=== PATIENT | female | born 1960 | race Caucasian/White ===

== ENCOUNTER 2019-04-08 14:29 | Inpatient (IN) ==
[2019-04-08] MEDS ORDERED: ONDANSETRON 4 MG/2 ML VIAL IV PRN (16:46)
[2019-04-08] MEDS ORDERED: POTASSIUM CHLORIDE RIDER 10 MEQ in PREMIX 1 EACH IV PRN (16:46)
[2019-04-08] MEDS ORDERED: ACETAMINOPHEN 325 MG TABLET PO PRN (16:46)
[2019-04-08] MEDS ORDERED: MAGNESIUM SULF RIDER 2 GM in PREMIX 1 EACH IV PRN (16:46)
[2019-04-08] MEDS ORDERED: MAGNESIUM SULF RIDER 4 GM in PREMIX 1 EACH IV PRN (16:46)
[2019-04-08] MEDS ORDERED: GLUCAGON 1 MG VIAL IM PRN (17:03)
[2019-04-08] MEDS ORDERED: DEXTROSE 10% 25 GM/250 ML BAG IV PRN (17:03)
[2019-04-08] MEDS: PANTOPRAZOLE 40 MG TABLET PO SCH (17:57)
[2019-04-08] MEDS: METOCLOPRAMIDE 10 MG/2 ML VIAL IV SCH ×2 (17:57→23:52)
[2019-04-08] MEDS: INSULIN GLARGINE 100 UNIT/ML SUBCUT SCH (17:57)
[2019-04-08] MEDS: NICOTINE 21 MG/24 HR PATCH TRANSDERM SCH (17:58)
[2019-04-08 18:11] LABS: Basophils # 0.1 10*3/uL (0.0-0.2); Basophils % 0.6 % (0.0-0.8); Eosinophils % 0.1 % (0.00-10.9); Hematocrit 39.9 VOL% (35.7-47.0); Hemoglobin 13.9 GM/DL (12.0-16.0); Immature Granulocytes % 3.3 %; Lymphocytes # 0.9 10*3/uL (1.4-4.0); Lymphocytes % 6.1 % (21.3-54.2); Mean Corpuscular HGB Conc 34.8 GM/DL (32-36); Mean Corpuscular Volume 88.9 FL (87-102); Mean Platelet Volume 9.4 FL (9.6-12.0); Monocytes % 7.1 % (1.7-12.7); Neutrophils % 82.8 % (38.7-73.9); Platelet Count 295 T/CUMM (130-400); Red Blood Count 4.49 MC/CUMM (3.8-5.5); Red Cell Distribution Width 12.7 % (9.3-17.3); White Blood Count 15.4 T/CUMM (4-12)
[2019-04-08 18:23] LABS: Albumin 2.1 G/DL (3.4-5.0); Bilirubin,Total 0.4 MG/DL (0.2-1.0); Calcium 7.5 MG/DL (8.5-10.1); Osmolality,Calculated 279.7 MOS/KG (273-304); Total Protein 5.6 G/DL (6.4-8.3)
[2019-04-08 18:28] LABS: Apearance,Urine CLEAR (Clear); Bacteria,Urine Occasional /HPF (Few); Bilirubin,Urine Negative (Negative); Blood, Urine Small mg/dL (Negative); Glucose,Urine (UA) >=500 mg/dL (Negative); Ketones,Urine 80 mg/dL (Negative); Mucus,Urine Occasional /LPF (Occasional); Nitrite,Urine Negative (Negative); Protein,Urine Negative; RBC,Urine 1 /HPF (0-4); Squamous Epithelial Cell,Urine Occasional /HPF (0-10); Urine Color Straw (Yellow); Urine Specific Gravity 1.014 (1.001-1.035); Urine Urobilinogen < 2.0 EU/DL (0.2-1.0); WBC,Urine 1 /HPF (0-6)
[2019-04-08 19:26] LABS: Band Neutrophils 3 % (0-10); Hypochromasia 1+; Lymphocytes 4 % (20-55); Microcytosis Slight; Myelocytes 1 %; Segmented Neutrophils 81 % (50-85); Total Cells Counted 100
[2019-04-08 19:28] LABS: Platelet Estimate Normal
[2019-04-08] MEDS: PROMETHAZINE 25 MG/1 ML VIAL IM PRN (19:30)
[2019-04-08] MEDS: MORPHINE 4 MG/1 ML VIAL IV PRN ×2 (19:30→23:51)
[2019-04-08] MEDS: POTASSIUM CHLORIDE INJ 40 MEQ in SODIUM CHLORIDE 0.45% 1,000 ML IV SCH (19:30)
[2019-04-08] MEDS: metroNIDAZOLE INJ 500 MG in PREMIX 1 EACH IV SCH (19:30)
[2019-04-08] MEDS: POTASSIUM CHLORIDE 20 MEQ TABLET PO PRN ×2 (21:07→23:52)
[2019-04-08] MEDS: ENOXAPARIN 40 MG/0.4 ML SYRINGE SUBCUT SCH (21:08)
[2019-04-08] MEDS: CIPROFLOXACIN INJ 400 MG in PREMIX 1 EACH IV SCH (22:44)
[2019-04-08] MEDS: INSULIN LISPRO 100 UNIT/ML SUBCUT SCH (22:54)
[2019-04-09] MEDS: PROMETHAZINE 25 MG/1 ML VIAL IM PRN ×3 (01:38→15:45)
[2019-04-09] MEDS: metroNIDAZOLE INJ 500 MG in PREMIX 1 EACH IV SCH ×4 (04:01→21:07)
[2019-04-09 05:37] LABS: Basophils # 0.1 10*3/uL (0.0-0.2); Basophils % 0.6 % (0.0-0.8); Eosinophils % 0.3 % (0.00-10.9); Hematocrit 34.3 VOL% (35.7-47.0); Hemoglobin 11.9 GM/DL (12.0-16.0); Immature Granulocytes % 2.3 %; Immature Granulocytes Absolute 0.33 #; Lymphocytes # 1.5 10*3/uL (1.4-4.0); Lymphocytes % 10.2 % (21.3-54.2); Mean Corpuscular HGB Conc 34.7 GM/DL (32-36); Mean Corpuscular Volume 88.9 FL (87-102); Mean Platelet Volume 9.8 FL (9.6-12.0); Monocytes % 7.8 % (1.7-12.7); Neutrophils % 78.8 % (38.7-73.9); Platelet Count 274 T/CUMM (130-400); Red Blood Count 3.86 MC/CUMM (3.8-5.5); Red Cell Distribution Width 12.6 % (9.3-17.3); White Blood Count 14.2 T/CUMM (4-12)
[2019-04-09 06:03] LABS: Calcium 7.4 MG/DL (8.5-10.1); Osmolality,Calculated 280.5 MOS/KG (273-304)
[2019-04-09 06:09] LABS: Microcytosis Slight; Platelet Estimate Normal
[2019-04-09] MEDS: METOCLOPRAMIDE 10 MG/2 ML VIAL IV SCH ×3 (06:42→18:13)
[2019-04-09] MEDS: MORPHINE 4 MG/1 ML VIAL IV PRN ×4 (06:42→21:05)
[2019-04-09] MEDS: INSULIN LISPRO 100 UNIT/ML SUBCUT SCH ×4 (07:48→21:10)
[2019-04-09] MEDS: PANTOPRAZOLE 40 MG TABLET PO SCH (08:45)
[2019-04-09] MEDS: INSULIN GLARGINE 100 UNIT/ML SUBCUT SCH (08:45)
[2019-04-09] MEDS: NICOTINE 21 MG/24 HR PATCH TRANSDERM SCH (08:47)
[2019-04-09] MEDS: CIPROFLOXACIN INJ 400 MG in PREMIX 1 EACH IV SCH ×2 (09:58→23:19)
[2019-04-09] MEDS: POTASSIUM CHLORIDE INJ 40 MEQ in SODIUM CHLORIDE 0.45% 1,000 ML IV SCH ×3 (10:20→17:31)
[2019-04-09] MEDS: POTASSIUM CHLORIDE 20 MEQ TABLET PO PRN ×3 (14:10→18:15)
[2019-04-09] MEDS ORDERED: ALPRAZolam 0.5 MG TABLET PO PRN (17:08)
[2019-04-09] MEDS ORDERED: hydrOXYzine HCL 25 MG TABLET PO PRN (17:08)
[2019-04-09] MEDS: ONDANSETRON 4 MG/2 ML VIAL IV PRN (21:05)
[2019-04-09] MEDS: ENOXAPARIN 40 MG/0.4 ML SYRINGE SUBCUT SCH (21:06)
[2019-04-10] MEDS: MORPHINE 4 MG/1 ML VIAL IV PRN ×2 (01:26→05:47)
[2019-04-10] MEDS: METOCLOPRAMIDE 10 MG/2 ML VIAL IV SCH ×5 (01:26→23:43)
[2019-04-10] MEDS: POTASSIUM CHLORIDE INJ 40 MEQ in SODIUM CHLORIDE 0.45% 1,000 ML IV SCH ×2 (02:30→15:42)
[2019-04-10] MEDS: metroNIDAZOLE INJ 500 MG in PREMIX 1 EACH IV SCH ×4 (02:31→20:09)
[2019-04-10 05:33] LABS: Basophils # 0.1 10*3/uL (0.0-0.2); Basophils % 0.5 % (0.0-0.8); Eosinophils % 0.2 % (0.00-10.9); Hematocrit 32.5 VOL% (35.7-47.0); Hemoglobin 11.6 GM/DL (12.0-16.0); Immature Granulocytes % 1.8 %; Immature Granulocytes Absolute 0.23 #; Lymphocytes # 1.4 10*3/uL (1.4-4.0); Mean Corpuscular HGB Conc 35.7 GM/DL (32-36); Mean Corpuscular Volume 86.7 FL (87-102); Mean Platelet Volume 9.9 FL (9.6-12.0); Monocytes % 5.3 % (1.7-12.7); Neutrophils % 81.2 % (38.7-73.9); Platelet Count 291 T/CUMM (130-400); Red Blood Count 3.75 MC/CUMM (3.8-5.5); Red Cell Distribution Width 12.3 % (9.3-17.3); White Blood Count 13.1 T/CUMM (4-12)
[2019-04-10 05:52] LABS: Calcium 7.7 MG/DL (8.5-10.1); Osmolality,Calculated 282.5 MOS/KG (273-304)
[2019-04-10 05:57] LABS: Alanine Aminotransferase 14 U/L (13-56); Albumin 2.2 G/DL (3.4-5.0); Alkaline Phosphatase 129 U/L (45-117); Aspartate Amino Transferase 14 U/L (0-37); Blood Urea Nitrogen < 1 MG/DL (7-18); Calcium 7.7 MG/DL (8.5-10.1); Estimated Glom Filtration Rate 90 ML/MIN; Glucose 287 MG/DL (74-106); Osmolality,Calculated 284.8 MOS/KG (273-304); Total Protein 4.9 G/DL (6.4-8.3)
[2019-04-10] MEDS: INSULIN LISPRO 100 UNIT/ML SUBCUT SCH ×4 (07:44→21:51)
[2019-04-10] MEDS: CIPROFLOXACIN INJ 400 MG in PREMIX 1 EACH IV SCH ×2 (08:55→21:57)
[2019-04-10] MEDS: INSULIN GLARGINE 100 UNIT/ML SUBCUT SCH (08:55)
[2019-04-10] MEDS: PANTOPRAZOLE 40 MG TABLET PO SCH (08:56)
[2019-04-10] MEDS: NICOTINE 21 MG/24 HR PATCH TRANSDERM SCH (08:56)
[2019-04-10] MEDS: CALCIUM (CARBONATE)/VITAMIN D 600 MG-400 UNIT TABLET PO SCH (08:56)
[2019-04-10] MEDS: SERTRALINE 100 MG TABLET PO SCH (08:56)
[2019-04-10] MEDS: DOCUSATE SODIUM 100 MG CAPSULE PO SCH (08:57)
[2019-04-10] MEDS: oxyCODONE/ACETAMINOPHEN 5-325 MG TABLET PO PRN ×3 (09:08→21:50)
[2019-04-10] MEDS: LISINOPRIL 20 MG TABLET PO SCH (09:46)
[2019-04-10] MEDS: MORPHINE ER 30 MG TABLET PO SCH ×2 (12:05→23:42)
[2019-04-10] MEDS: ONDANSETRON 4 MG/2 ML VIAL IV PRN ×2 (15:39→22:01)
[2019-04-10] MEDS: GABAPENTIN 100 MG CAPSULE PO SCH (21:51)
[2019-04-10] MEDS: ENOXAPARIN 40 MG/0.4 ML SYRINGE SUBCUT SCH (21:53)
[2019-04-11] MEDS: POTASSIUM CHLORIDE INJ 40 MEQ in SODIUM CHLORIDE 0.45% 1,000 ML IV SCH ×4 (01:40→23:46)
[2019-04-11] MEDS: metroNIDAZOLE INJ 500 MG in PREMIX 1 EACH IV SCH ×4 (01:42→20:27)
[2019-04-11] MEDS: METOCLOPRAMIDE 10 MG/2 ML VIAL IV SCH ×4 (05:06→23:29)
[2019-04-11 05:15] LABS: Basophils # 0.1 10*3/uL (0.0-0.2); Basophils % 0.7 % (0.0-0.8); Eosinophils # 0.1 10*3/uL (0.0-0.87); Eosinophils % 1.2 % (0.00-10.9); Hematocrit 30.5 VOL% (35.7-47.0); Hemoglobin 10.8 GM/DL (12.0-16.0); Immature Granulocytes % 1.6 %; Immature Granulocytes Absolute 0.14 #; Lymphocytes # 2.5 10*3/uL (1.4-4.0); Mean Corpuscular HGB Conc 35.4 GM/DL (32-36); Mean Corpuscular Volume 87.1 FL (87-102); Mean Platelet Volume 9.8 FL (9.6-12.0); Monocytes % 5.8 % (1.7-12.7); Neutrophils % 62.7 % (38.7-73.9); Platelet Count 287 T/CUMM (130-400); Red Cell Distribution Width 12.5 % (9.3-17.3)
[2019-04-11 05:43] LABS: Calcium 7.6 MG/DL (8.5-10.1); Osmolality,Calculated 284.1 MOS/KG (273-304)
[2019-04-11] MEDS: INSULIN LISPRO 100 UNIT/ML SUBCUT SCH ×4 (08:05→21:08)
[2019-04-11] MEDS ORDERED: PROPOFOL 200 MG/20 ML VIAL IV ONE (09:00)
[2019-04-11] MEDS: DOCUSATE SODIUM 100 MG CAPSULE PO SCH (09:00)
[2019-04-11] MEDS: INSULIN GLARGINE 100 UNIT/ML SUBCUT SCH (09:00)
[2019-04-11] MEDS ORDERED: LIDOCAINE 2% 5 ML VIAL ONE (09:00)
[2019-04-11] MEDS: GABAPENTIN 100 MG CAPSULE PO SCH ×2 (09:00→20:27)
[2019-04-11] MEDS: LISINOPRIL 20 MG TABLET PO SCH (09:04)
[2019-04-11] MEDS: CIPROFLOXACIN INJ 400 MG in PREMIX 1 EACH IV SCH ×2 (09:55→20:27)
[2019-04-11] MEDS ORDERED: BISACODYL 5 MG TABLET PO ONE (12:00)
[2019-04-11] MEDS ORDERED: ONDANSETRON 4 MG TABLET PO PRN (12:23)
[2019-04-11] MEDS ORDERED: diphenhydrAMINE CAP 25 MG CAPSULE PO PRN (12:23)
[2019-04-11] MEDS: MORPHINE ER 30 MG TABLET PO SCH ×2 (13:53→23:29)
[2019-04-11] MEDS: NICOTINE 21 MG/24 HR PATCH TRANSDERM SCH (13:55)
[2019-04-11] MEDS: CALCIUM (CARBONATE)/VITAMIN D 600 MG-400 UNIT TABLET PO SCH (14:05)
[2019-04-11] MEDS: PANTOPRAZOLE 40 MG TABLET PO SCH (14:05)
[2019-04-11] MEDS: SERTRALINE 100 MG TABLET PO SCH (14:06)
[2019-04-11] MEDS: oxyCODONE/ACETAMINOPHEN 5-325 MG TABLET PO PRN (16:19)
[2019-04-11] MEDS: POTASSIUM CHLORIDE 20 MEQ TABLET PO PRN (16:20)
[2019-04-11] MEDS ORDERED: POLYETHYLENE GLYCOL POWDER 255 GM BOTTLE PO ONE (18:00)
[2019-04-11] MEDS: ENOXAPARIN 40 MG/0.4 ML SYRINGE SUBCUT SCH (20:27)
[2019-04-11] MEDS ORDERED: DICLOFENAC SODIUM 75 MG TABLET PO SCH (21:00)
[2019-04-12] MEDS: metroNIDAZOLE INJ 500 MG in PREMIX 1 EACH IV SCH ×4 (01:34→20:26)
[2019-04-12 05:22] LABS: Basophils % 0.5 % (0.0-0.8); Eosinophils # 0.1 10*3/uL (0.0-0.87); Eosinophils % 0.9 % (0.00-10.9); Hematocrit 31.6 VOL% (35.7-47.0); Hemoglobin 10.9 GM/DL (12.0-16.0); Immature Granulocytes % 1.1 %; Immature Granulocytes Absolute 0.08 #; Lymphocytes # 2.1 10*3/uL (1.4-4.0); Lymphocytes % 28.4 % (21.3-54.2); Mean Corpuscular HGB Conc 34.5 GM/DL (32-36); Mean Corpuscular Volume 89.3 FL (87-102); Mean Platelet Volume 9.7 FL (9.6-12.0); Monocytes % 5.9 % (1.7-12.7); Neutrophils % 63.2 % (38.7-73.9); Platelet Count 299 T/CUMM (130-400); Red Blood Count 3.54 MC/CUMM (3.8-5.5); Red Cell Distribution Width 12.8 % (9.3-17.3); White Blood Count 7.4 T/CUMM (4-12)
[2019-04-12] MEDS: METOCLOPRAMIDE 10 MG/2 ML VIAL IV SCH ×3 (05:38→18:46)
[2019-04-12 05:55] LABS: Calcium 7.9 MG/DL (8.5-10.1); Osmolality,Calculated 287.8 MOS/KG (273-304)
[2019-04-12] MEDS: POTASSIUM CHLORIDE INJ 40 MEQ in SODIUM CHLORIDE 0.45% 1,000 ML IV SCH ×2 (07:20→16:26)
[2019-04-12] MEDS: INSULIN LISPRO 100 UNIT/ML SUBCUT SCH ×4 (08:24→20:17)
[2019-04-12] MEDS: LISINOPRIL 20 MG TABLET PO SCH (08:24)
[2019-04-12] MEDS: LACTATED RINGERS 1,000 ML IV SCH (09:55)
[2019-04-12] MEDS: CIPROFLOXACIN INJ 400 MG in PREMIX 1 EACH IV SCH ×2 (09:55→21:58)
[2019-04-12] MEDS ORDERED: LIDOCAINE 2% 5 ML VIAL ONE (10:00)
[2019-04-12] MEDS ORDERED: PROPOFOL 200 MG/20 ML VIAL IV ONE (10:00)
[2019-04-12] MEDS ORDERED: INSULIN GLARGINE 100 UNIT/ML SUBCUT SCH (10:24)
[2019-04-12] MEDS ORDERED: FLUCONAZOLE 150 MG TABLET PO ONE (10:24)
[2019-04-12] MEDS: INSULIN GLARGINE 100 UNIT/ML SUBCUT SCH (10:34)
[2019-04-12] MEDS: DOCUSATE SODIUM 100 MG CAPSULE PO SCH (14:28)
[2019-04-12] MEDS: GABAPENTIN 100 MG CAPSULE PO SCH ×2 (14:28→20:27)
[2019-04-12] MEDS: MULTIVITAMIN (PRENATAL) TABLET PO SCH (14:28)
[2019-04-12] MEDS: NICOTINE 21 MG/24 HR PATCH TRANSDERM SCH (14:29)
[2019-04-12] MEDS: CALCIUM (CARBONATE)/VITAMIN D 600 MG-400 UNIT TABLET PO SCH (14:29)
[2019-04-12] MEDS: SERTRALINE 100 MG TABLET PO SCH (14:30)
[2019-04-12] MEDS: PANTOPRAZOLE 40 MG TABLET PO SCH (14:30)
[2019-04-12] MEDS: MORPHINE ER 30 MG TABLET PO SCH (14:30)
[2019-04-12] MEDS ORDERED: INSULIN REGULAR 100 UNIT/ML SUBCUT ONE (15:43)
[2019-04-12] MEDS: oxyCODONE/ACETAMINOPHEN 5-325 MG TABLET PO PRN ×2 (16:32→21:58)
[2019-04-12 19:21] LABS: CDT Specimen Source STOOL
[2019-04-12] MEDS: ENOXAPARIN 40 MG/0.4 ML SYRINGE SUBCUT SCH (20:27)
[2019-04-13] MEDS: MORPHINE ER 30 MG TABLET PO SCH ×2 (00:11→12:06)
[2019-04-13] MEDS: METOCLOPRAMIDE 10 MG/2 ML VIAL IV SCH ×3 (00:11→12:05)
[2019-04-13] MEDS: POTASSIUM CHLORIDE INJ 40 MEQ in SODIUM CHLORIDE 0.45% 1,000 ML IV SCH ×3 (02:50→12:45)
[2019-04-13] MEDS: metroNIDAZOLE INJ 500 MG in PREMIX 1 EACH IV SCH ×2 (03:02→08:27)
[2019-04-13] MEDS: oxyCODONE/ACETAMINOPHEN 5-325 MG TABLET PO PRN ×2 (04:08→10:22)
[2019-04-13] MEDS: INSULIN LISPRO 100 UNIT/ML SUBCUT SCH ×2 (08:26→12:06)
[2019-04-13] MEDS: NICOTINE 21 MG/24 HR PATCH TRANSDERM SCH (09:06)
[2019-04-13] MEDS: CALCIUM (CARBONATE)/VITAMIN D 600 MG-400 UNIT TABLET PO SCH (09:06)
[2019-04-13] MEDS: GABAPENTIN 100 MG CAPSULE PO SCH (09:06)
[2019-04-13] MEDS: SERTRALINE 100 MG TABLET PO SCH (09:06)
[2019-04-13] MEDS: PANTOPRAZOLE 40 MG TABLET PO SCH (09:06)
[2019-04-13] MEDS: DOCUSATE SODIUM 100 MG CAPSULE PO SCH (09:06)
[2019-04-13] MEDS: LISINOPRIL 20 MG TABLET PO SCH (09:06)
[2019-04-13] MEDS: MULTIVITAMIN (PRENATAL) TABLET PO SCH (09:06)
[2019-04-13 09:27] LABS: CDT Result Positive (Negative)
[2019-04-13] MEDS: CIPROFLOXACIN INJ 400 MG in PREMIX 1 EACH IV SCH (09:57)
[2019-04-13] MEDS: LACTATED RINGERS 1,000 ML IV SCH (09:57)
[2019-04-13] MEDS ORDERED: VANCOMYCIN 50 MG/ML 60 ML/BOTTLE PO SCH (12:00)
[2019-04-13 12:12] VITALS: BP 123/55
== END 2019-04-13 13:57 | disposition home or self-care (01) | DRG 248 ==
LOC: SUATTDRO 16:01 → N.3E 16:01
PROVIDERS: ADMIT Internal Medicine; ATTEND Internal Medicine Cardiovascular Disease
PROC: COLONBX (2019-04-12 11:05)